=== PATIENT | female | born 1980 | race Caucasian/White ===

== ENCOUNTER 2022-01-25 12:36 | Inpatient (IN) ==
[2022-01-25] MEDS ORDERED: Acetaminophen 325 MG RECTAL SUPP RC ONE (12:44)
[2022-01-25] MEDS ORDERED: Acetaminophen 650 MG RECTAL SUPP RC ONE ×2 (12:45)
[2022-01-25] MEDS ORDERED: 0.9 % Sodium Chloride 1,000 ML IVC ONE ×2 (12:46→13:42)
[2022-01-25 12:56] LABS: ABG Base Excess -2 mEq/L (-2 to 3); ABG HCO3 21 mEq/L (21-27); ABG Oxygen Saturation 96 % (95-98); ABG PCO2 28 mmHg (35-45); ABG PH 7.47 pH Units (7.32-7.45); ABG PO2 77 mmHg (85-104); ABG TCO2 22 mEq/L (20-26); Blood Gas Modality AVAPS; Blood Gas VT 450 cc
[2022-01-25] MEDS ORDERED: Iopamidol - 370 500 ML MLS IVP ONE (12:57)
[2022-01-25 12:58] LABS: Hemoglobin 14.1 g/dL (11.5-15.4); Mean Corpuscular HGB Conc 32.8 g/dL (31.6-35.5); Mean Corpuscular Hemoglobin 30.1 pg (28.0-33.3); Mean Corpuscular Volume 91.9 fL (83.0-100.0); Mean Platelet Volume 11.3 fL (9.4-12.4); Monocytes # 1.2 K/mcL (0.0-1.3); Platelet Count 385 K/mcL (140-400); Red Blood Count 4.68 M/mcL (3.82-4.97); Red Cell Distribution Width 15.1 % (11.5-14.5); White Blood Count 10.3 K/mcL (4.3-11.1)
[2022-01-25 13:07] LABS: VBG HCO3 22 mEq/L (21-27); VBG PCO2 34 mmHg (41-51); VBG PH 7.41 pH Units (7.32-7.42); VBG PO2 48 mmHg (25-50)
[2022-01-25 13:08] LABS: INR 1.1; Prothrombin Time 12.1 Seconds (9.4-12.1)
[2022-01-25 13:10] LABS: Activated Partial Thrombo Time 26.5 Seconds (26.0-36.0)
[2022-01-25 13:15] LABS: Bilirubin,Urine Negative (Negative); Blood,Urine Negative (Negative); Clarity,Urine Clear (Clear); Color,Urine Light-Yellow (Yellow); Glucose,Urine (UA) Normal (Normal); Granular Casts,Urine Few per lpf (None Seen); Hyaline Casts,Urine Many per lpf (None Seen); Ketones,Urine Trace mg/dL (Negative); Leukocyte Esterase,Urine Negative (Negative); Mucus,Urine Few per lpf (None-Few); Nitrite,Urine Negative (Negative); PH,Urine 5.5 pH Units (5.0-8.0); Protein,Urine 30 mg/dL (Neg-Trace); Specific Gravity,Urine 1.016 (1.010-1.025); Squamous Epithelial Cell,Urine Few per hpf (None-Few); Urobilinogen,Urine Normal (Normal); White Blood Cell Casts,Urine Few per lpf (None Seen)
[2022-01-25 13:25] LABS: Troponin I 0.35 ng/mL (< 0.04)
[2022-01-25 13:33] LABS: Alanine Aminotransferase 19 Units/L (7-52); Albumin 2.6 g/dL (3.5-5.7); Albumin/Globulin Ratio 1.1 (1.1-2.2); Alkaline Phosphatase 30 Units/L (34-104); Aspartate Amino Transferase 33 Units/L (13-39); BUN/Creatinine Ratio 24 (6-26); Bilirubin,Indirect 0.2 mg/dL (0.0-1.0); Bilirubin,Total 0.2 mg/dL (0.3-1.0); Blood Urea Nitrogen 46 mg/dL (8-23); Calcium 9.5 mg/dL (8.6-10.3); Carbon Dioxide 16 mEq/L (23-29); Chloride 121 mEq/L (98-107); Globulin 2.3 g/dL (2.4-3.5); Glucose 75 mg/dL (70-105); Lipase 21 Units/L (11-82); Magnesium 1.4 mg/dL (1.6-2.6); Osmolality,Calculated 315 (280-300); Phosphorous 2.1 mg/dL (2.7-4.5); Potassium 2.6 mEq/L (3.5-5.1); Sodium 147 mEq/L (136-145); Total Protein 4.9 g/dL (6.4-8.9); eGFR For African Americans 28 (> 60); eGFR For Non-African Americans 23 (> 60)
[2022-01-25] MEDS ORDERED: Azithromycin 500 MG in 0.9 % Sodium Chloride 250 ML IVPB ONE (13:46)
[2022-01-25] MEDS ORDERED: cefTRIAXone 1,000 MG in 0.9 % Sodium Chloride 10 ML IVP ONE (13:46)
[2022-01-25 13:48] LABS: Lymphocytes # 2.3 K/mcL (0.6-4.6); Neutrophils # 6.6 K/mcL (1.6-8.9); Platelet Estimate Normal (Normal); Reactive Lymphocytes Present (Not Present); Toxic Vacuolation Present (Not Present)
[2022-01-25 13:55] LABS: Amphetamine Screen,Urine Negative ng/mL (Cutoff=1000); Barbiturate Screen,Urine Negative ng/mL (Cutoff=200); Benzodiazepines Screen,Urine Negative ng/mL (Cutoff=200); Cannabinoid Screen,Urine Negative ng/mL (Cutoff = 50); Cocaine Screen,Urine Negative ng/mL (Cutoff= 300); Opiate Screen,Urine Negative ng/mL (Cutoff=300); Phencyclidine Screen,Urine Negative ng/mL (Cutoff=25)
[2022-01-25 14:13] LABS: Influenza A PCR Negative (Negative); Influenza B PCR Negative (Negative); Resp. Syncytial Virus PCR Negative (Negative)
[2022-01-25 14:16] LABS: SARS-CoV-2 by PCR (In House) Negative (Negative)
[2022-01-25 14:21] LABS: Creatine Kinase 192 Units/L (30-223); Ethanol < 10 mg/dL (Less than 10)
[2022-01-25 15:13] LABS: Acetaminophen < 10 mcg/mL (10-20); Salicylate < 2.5 mg/dL (15.0-30.0)
[2022-01-25] MEDS ORDERED: *HR* FentaNYL (PF) 1,000 MCG/20 ML VIAL ONE (15:50)
[2022-01-25] MEDS: FentaNYL (PF) 1,000 MCG/100 ML IV.SOLN IVC SCH ×2 (15:57→22:21)
[2022-01-25] MEDS ORDERED: Naloxone 0.4 MG/ML INJ IVP PRN (16:27)
[2022-01-25] MEDS ORDERED: Artificial Tears SOLN 15 ML BOTTLE BOTH EYES PRN (16:27)
[2022-01-25] MEDS ORDERED: Potassium Phosphate 44 MEQ in 0.9 % Sodium Chloride 250 ML IVPB PRN (17:51)
[2022-01-25] MEDS ORDERED: Calcium Gluconate 1gm/50mL 1 GM/50 ML BAG IVPB PRN (17:51)
[2022-01-25] MEDS: Pantoprazole 40 MG VIAL IVP SCH (17:52)
[2022-01-25] MEDS: Ringers Solution, Lactated 1,000 ML IVC SCH ×2 (17:53→23:53)
[2022-01-25] MEDS ORDERED: Acetaminophen 650 MG RECTAL SUPP RC PRN (18:25)
[2022-01-25 19:47] LABS: ABG Base Excess -5 mEq/L (-2 to 3); ABG HCO3 19 mEq/L (21-27); ABG Oxygen Saturation 97 % (95-98); ABG PCO2 32 mmHg (35-45); ABG PH 7.38 pH Units (7.32-7.45); ABG PO2 86 mmHg (85-104); ABG TCO2 20 mEq/L (20-26); Blood Gas VT 450 cc
[2022-01-25] MEDS: Chlorhexidine Rinse 15 ML MOUTHWASH MM SCH (20:12)
[2022-01-25] MEDS: Artificial Tears SOLN 15 ML BOTTLE BOTH EYES SCH ×2 (20:13→23:52)
[2022-01-25 21:23] LABS: Adenovirus Not Detected (Not Detect); Bordetella Pertussis Not Detected (Not Detect); Chlamydophila pneumoniae Not Detected (Not Detect); Coronavirus 229E Not Detected (Not Detect); Coronavirus HKU1 Not Detected (Not Detect); Coronavirus NL63 Not Detected (Not Detect); Coronavirus OC43 Not Detected (Not Detect); Human Metapneumovirus Not Detected (Not Detect); Human Rhinovirus/Enterovirus Not Detected (Not Detect); Influenza A Subtype 2009 H1 Not Detected (Not Detect); Influenza B Not Detected (Not Detect); Mycoplasma pneumoniae Not Detected (Not Detect); Parainfluenza Virus 1 Not Detected (Not Detect); Parainfluenza Virus 2 Not Detected (Not Detect); Parainfluenza Virus 3 Not Detected (Not Detect); Parainfluenza Virus 4 Not Detected (Not Detect); Respiratory Syncytial Virus Not Detected (Not Detect); SARS-CoV-2 Not Detected (Not Detect)
[2022-01-26] MEDS ORDERED: Piperacillin/Tazobactam 3.375 GM in 0.9 % Sodium Chloride Mini Bag 100 ML IVPB SCH
[2022-01-26 02:37] LABS: Basophils % 0.1 %; Hematocrit 35.4 % (35.3-44.9); Hemoglobin 11.2 g/dL (11.5-15.4); Immature Granulocytes % 0.1 % (0-4); Lymphocytes # 1.8 K/mcL (0.6-4.6); Lymphocytes % 21.1 %; Mean Corpuscular HGB Conc 31.6 g/dL (31.6-35.5); Mean Corpuscular Hemoglobin 30.5 pg (28.0-33.3); Mean Corpuscular Volume 96.5 fL (83.0-100.0); Mean Platelet Volume 11.3 fL (9.4-12.4); Monocytes # 0.9 K/mcL (0.0-1.3); Monocytes % 10.5 %; Neutrophils # 5.9 K/mcL (1.6-8.9); Platelet Count 283 K/mcL (140-400); Red Blood Count 3.67 M/mcL (3.82-4.97); Red Cell Distribution Width 15.6 % (11.5-14.5); Segmented Neutrophils % 68.2 %; White Blood Count 8.6 K/mcL (4.3-11.1)
[2022-01-26 02:44] LABS: VBG Ionized Calcium 1.53 mmol/L (1.15-1.35)
[2022-01-26] MEDS ORDERED: Perflutren Lipid Microsphere 1.3 ML in 0.9 % Sodium Chloride 8.7 ML IVP PRN (02:51)
[2022-01-26 03:30] LABS: Calcium 11.4 mg/dL (8.6-10.3); Magnesium 2.4 mg/dL (1.6-2.6); Phosphorous 3.6 mg/dL (2.7-4.5)
[2022-01-26 04:32] LABS: ABG Base Excess -3 mEq/L (-2 to 3); ABG HCO3 22 mEq/L (21-27); ABG Oxygen Saturation 98 % (95-98); ABG PCO2 38 mmHg (35-45); ABG PH 7.36 pH Units (7.32-7.45); ABG PO2 104 mmHg (85-104); ABG TCO2 23 mEq/L (20-26); Blood Gas Modality ASSIST CONTROL; Blood Gas VT 450 cc
[2022-01-26] MEDS: FentaNYL (PF) 1,000 MCG/100 ML IV.SOLN IVC SCH (04:53)
[2022-01-26] MEDS: Artificial Tears SOLN 15 ML BOTTLE BOTH EYES SCH ×3 (04:54→11:02)
[2022-01-26] MEDS ORDERED: *HR* Heparin 5,000 UNIT/ML VIAL IVP PRN ×2 (05:13)
[2022-01-26] MEDS ORDERED: *HR* Heparin 5,000 UNIT/ML VIAL IVP ONE ×2 (05:13→08:36)
[2022-01-26] MEDS ORDERED: Heparin 25,000UNIT/250ML 1/2NS 25,000 UNIT/250 ML IV.SOLN IVC SCH ×2 (05:15→08:45)
[2022-01-26] MEDS: Chlorhexidine Rinse 15 ML MOUTHWASH MM SCH (08:34)
[2022-01-26] MEDS: Pantoprazole 40 MG VIAL IVP SCH (08:34)
[2022-01-26] MEDS ORDERED: cefTRIAXone 2,000 MG in 0.9 % Sodium Chloride 20 ML IVPB SCH (09:00)
[2022-01-26] MEDS ORDERED: levETIRAcetam 1,000 MG in 0.9 % Sodium Chloride 100 ML IVPB ONE ×2 (11:14→23:00)
[2022-01-26 11:42] VITALS: TEMP 98.3
[2022-01-26] MEDS ORDERED: Ringers Solution, Lactated 1,000 ML IVC SCH (12:30)
[2022-01-26] MEDS ORDERED: *HR* Metoprolol 5 MG/5 ML VIAL IVP ONE (12:48)
[2022-01-26] MEDS ORDERED: Ipratropium/Albuterol Neb 3 ML IH PRN (14:11)
[2022-01-26 14:46] VITALS: BP 156/93
[2022-01-26 15:39] VITALS: PULSE 75; O2SAT 94
[2022-01-26] MEDS ORDERED: Azithromycin 500 MG in 0.9 % Sodium Chloride 250 ML IVPB SCH (20:00)
[2022-01-26] MEDS ORDERED: levETIRAcetam 1,000 MG in 0.9 % Sodium Chloride 100 ML IVPB SCH (23:00)
== END 2022-01-26 15:53 | disposition short-term general hospital (02) | DRG 871 ==
LOC: ICNU 12:36 → EDBD 12:36 → EMEROOARM 12:36 → ICNU 18:10
PROVIDERS: ADMIT Family Medicine; ATTEND Family Medicine